=== PATIENT | male | born 1970 ===

== ENCOUNTER 2020-09-21 06:27 | Day surgery (SDC) | payer OTHER ==
[~2020-09-21 06:27] MED LIST: TERAZOSIN HCL10 MG PO
[2020-09-21] MEDS ORDERED: PERCOCET 5-3251 EACH PO (15:04)
[2020-09-21] MEDS ORDERED: NEURONTIN300 MG PO (15:05)
[2020-09-21] MEDS ORDERED: DERMOPLAST FIRS78 GM TOP (15:06)
== END 2020-09-21 19:10 | disposition home or self-care (01) ==
LOC: CIR.AMB 06:27
PROVIDERS: ATTEND Surgery
DX: K64.8 Other hemorrhoids (principal); K64.4 Residual hemorrhoidal skin tags; Z20.822 Contact with and (suspected) exposure to COVID-19